=== PATIENT | female | born 1935 | race Caucasian/White ===

== ENCOUNTER 2023-09-21 22:02 | Inpatient (IN) | payer MEDICARE, OTHER ==
[~2023-09-21] VITALS: Ht 144.8 cm; Wt 54.4 kg
[2023-09-21 22:12] VITALS: BP_SYST 140; PULSE 64; RESP 16; TEMP 96.9; O2SAT 96
[2023-09-21 23:13] LABS: BASOPHILS % (AUTO) 0.6 % (0.0-2.0); EOSINOPHILS # (AUTO) 0.1 K/uL (0.0-0.4); EOSINOPHILS % (AUTO) 1.3 % (0.0-4.0); HEMOGLOBIN 12.4 g/dL (12.0-16.0); LYMPHOCYTES # (AUTO) 2.5 K/uL (1.0-5.5); LYMPHOCYTES % (AUTO) 32.6 % (20.5-51.5); MEAN CORPUSCULAR HEMOGLOBIN 33 pg (27-31); MEAN CORPUSCULAR HGB CONC 35 % (32-36); MEAN CORPUSCULAR VOLUME 92 fL (79.0-98.0); MONOCYTES % (AUTO) 12.9 % (1.7-9.3); NEUTROPHILS % (AUTO) 52.6 % (40.0-70.0); PLATELET COUNT (AUTO) 249 K/uL (130-430); RED BLOOD CELL COUNT(AUTO) 3.81 MIL/uL (4.2-6.2); RED CELL DISTRIBUTION WIDTH 14.9 % (9.0-15.0); WHITE BLOOD COUNT (AUTO) 7.6 K/uL (4.8-10.8)
[2023-09-21] MEDS: NACL 0.9% 1,000 ML IV ONE (23:21)
[2023-09-22 00:02] LABS: ALANINE AMINOTRANSFERASE 26 U/L (12-78); ANION GAP 10 (5-15); ASPARTATE AMINOTRANSFERASE 18 U/L (10-37); CALCIUM 9.2 mg/dL (8.4-11.0); CARBON DIOXIDE 25 mmol/L (23-29); CHLORIDE 107 mmol/L (98-107); CREATININE 1.12 mg/dL (0.55-1.30); GLUCOSE 140 mg/dL (74-106); POTASSIUM 3.6 mmol/L (3.5-5.1); SODIUM SERUM 142 mmol/L (136-145); TOTAL BILIRUBIN 0.4 mg/dL (0.0-1.0); TOTAL PROTEIN, SERUM 6.2 g/dL (6.4-8.3); UREA NITROGEN, BLOOD 28 mg/dL (8-21)
[2023-09-22 00:03] LABS: PROTHROMBIN TIME 9.9 SECS (9.5-12.5)
[2023-09-22 00:04] LABS: BILIRUBIN,DIRECT 0.1 mg/dL (0.0-0.3)
[2023-09-22 00:55] LABS: BILIRUBIN,URINE NEGATIVE (NEGATIVE); CLARITY/URINE CLEAR (CLEAR); COLOR,URINE YELLOW (YELLOW); GLUCOSE,URINE NEGATIVE (NEGATIVE); KETONES,URINE NEGATIVE (NEGATIVE); LEUKOCYTE ESTERASE ,URINE NEGATIVE (NEGATIVE); NITRITE, URINE NEGATIVE (NEGATIVE); PROTEIN URINE NEGATIVE (NEGATIVE); UROBILINOGEN,URINE 0.2 (0.2-1.0)
[2023-09-22] MEDS: NACL 0.9% 1,000 ML IV ONE (01:15)
[2023-09-22 01:41] LABS: BACTERIA,URINE None Seen /HPF (None Seen); BLOOD, URINE TRACE (NEGATIVE); WBC,URINE 0-3 /HPF (0-3)
[2023-09-22] MEDS ORDERED: GABA-331 (06:00)
[2023-09-22] MEDS ORDERED: HYDR25TA4 PO (06:00)
[2023-09-22] MEDS ORDERED: PROP10TA10 PO (06:00)
[2023-09-22] MEDS ORDERED: AMIO200T68 PO (06:00)
[2023-09-22] MEDS ORDERED: LEVO50TA8 PO (06:00)
[2023-09-22] MEDS ORDERED: ACET-1 PO (06:00)
[2023-09-22] MEDS ORDERED: DORZ10DR9 EACH EYE (06:00)
[2023-09-22] MEDS ORDERED: LOSA25TA18 PO (06:00)
[2023-09-22] MEDS ORDERED: GABA-534 (06:00)
[2023-09-22] MEDS ORDERED: ATOR20TA64 PO (06:00)
[2023-09-22] MEDS ORDERED: DABI110C PO (06:00)
[2023-09-22] MEDS ORDERED: HYDROCHLOROTHIAZIDE 25 MG TABLET (HCTZ) PO SCH (09:00)
[2023-09-22] MEDS: HYDROCHLOROTHIAZIDE 25 MG TABLET (HCTZ) PO SCH ×2 (09:38→10:45)
[2023-09-22] MEDS: LEVOTHYROXINE SODIUM 0.05 MG TABLET PO ONE (09:39)
[2023-09-22] MEDS ORDERED: HYDROcodone/ACETAMIN 10-325 MG TAB PO PRN (10:45)
[2023-09-22] MEDS: AMIODARONE HCL 200 MG TABLET PO SCH (10:45)
[2023-09-22] MEDS ORDERED: ACETAMINOPHEN 325 MG TABLET PO PRN (10:45)
[2023-09-22] MEDS ORDERED: NALOXONE HCL 0.4 MG/ML AMP (NARCAN) IVP PRN ×2 (10:45)
[2023-09-22] MEDS ORDERED: ONDANSETRON HCL 4 MG/2 ML VIAL IVP PRN (10:45)
[2023-09-22] MEDS: LEVOTHYROXINE SODIUM 0.05 MG TABLET PO SCH (10:45)
[2023-09-22] MEDS ORDERED: LORazepam 2 MG/ML VIAL IVP PRN (10:45)
[2023-09-22] MEDS ORDERED: HYDROcodone/ACETAMIN 5-325 MG TAB (NORCO/ VICODIN) PO PRN (10:45)
[2023-09-22] MEDS: LOSARTAN POTASSIUM 25 MG TABLET PO SCH (10:45)
[2023-09-22] MEDS ORDERED: NEU300 PO (11:26)
[2023-09-22] MEDS ORDERED: GABAPENTIN 300 MG CAPSULE PO SCH ×2 (11:45→21:00)
[2023-09-22] MEDS: NORMAL SALINE 5 ML DISP.SYRIN IVF SCH (14:44)
[2023-09-22] MEDS: GABAPENTIN 300 MG CAPSULE PO SCH (14:44)
[2023-09-22 18:58] VITALS: BP_SYST 122; PULSE 65; RESP 22; TEMP 97.5; O2SAT 99
[2023-09-22] MEDS ORDERED: DABIGATRAN ETEXILATE MESYLATE 75 MG CAPSULE PO SCH (21:00)
[2023-09-22] MEDS ORDERED: ATORVASTATIN 20 MG TABLET PO SCH (21:00)
[2023-09-22] MEDS ORDERED: PROPRANOLOL HCL 10 MG TABLET (INDERAL) PO SCH (21:00)
[2023-09-23] MEDS ORDERED: LEVOTHYROXINE SODIUM 0.05 MG TABLET PO SCH (07:00)
== END 2023-09-22 18:58 | disposition short-term general hospital (02) | DRG 641 ==
LOC: SED 22:02 → STU 09-22 04:48
PROVIDERS: ADMIT Preventive Medicine Preventive Medicine/Occupational Environmental Medicine; ATTEND Preventive Medicine Preventive Medicine/Occupational Environmental Medicine
DX: E86.0 Dehydration (principal); E44.0 Moderate protein-calorie malnutrition; I10 Essential (primary) hypertension; E78.5 Hyperlipidemia, unspecified; E03.9 Hypothyroidism, unspecified; Z79.899 Other long term (current) drug therapy; Z79.01 Long term (current) use of anticoagulants; Z68.26 Body mass index [BMI] 26.0-26.9, adult; G62.9 Polyneuropathy, unspecified; R79.89 Other specified abnormal findings of blood chemistry; R73.9 Hyperglycemia, unspecified
CPT/HCPCS: 36415; 70450-TC; 71045; 80048; 80076; 81000; 81001; 81015; 83605; 83880; 84484; 85025; 85610; 85730; 87040; 87086; 93005; 93306; 99285; G0378